=== PATIENT | female | born 1990 ===

== ENCOUNTER 2017-08-03 21:02 | Emergency (ER) | payer MEDICAID, OTHER ==
[2017-08-03 21:13] VITALS: BP 126/78; PULSE 96; TEMP 98.5; O2SAT 100
--- NOTE | 2017-08-03 21:34 | C.PDOC ---
Time Seen by Provider: 08/03/17 21:14 Chief Complaint (Nursing): Dental Pain Past Medical History Vital Signs: Last Vital Signs Temp 98.5 F 08/03/17 21:08 Pulse 96 H 08/03/17 21:08 Resp 18 08/03/17 21:08 BP 126/78 08/03/17 21:08 Pulse Ox 100 08/03/17 21:08 - Social History Hx Tobacco Use: No Hx Alcohol Use: No Hx Substance Use: No - Immunization History Hx Tetanus Toxoid Vaccination: No Hx Influenza Vaccination: No Hx Pneumococcal Vaccination: No ED Course And Treatment O2 Sat by Pulse Oximetry: 100 Disposition - Disposition Referrals: Chela Nowak MD [Primary Care Provider] -
--- NOTE | 2017-08-03 21:36 | C.PDOC ---
History Of Present Illness <ChiloVinnyMaude L - Last Filed: 08/03/17 22:05> <Pritesh Ruiz - Last Filed: 08/04/17 00:21> 27 y/o female presents to ED with complaints of tooth pain, ear pain and throat pain for 2 days. Patient states she had molar extraction x1 month ago and has worsening pain for 2 days. Patient denies fever, discharge, active bleeding or any other complaints at this time. (Maude Woo) She and want "something stronger for dental pain" but have not used motrin in the past few days, "because I don't think it will work" (Pritesh Ruiz) History Per: Patient History/Exam Limitations: no limitations Onset/Duration Of Symptoms: Days Current Symptoms Are (Timing): Still Present <ChiloVinnyMaude L - Last Filed: 08/03/17 22:05> <Pritesh Ruiz - Last Filed: 08/04/17 00:21> Time Seen by Provider: 08/03/17 21:14 Chief Complaint (Nursing): Dental Pain Past Medical History Reviewed: Historical Data, Nursing Documentation, Vital Signs - Medical History PMH: No Chronic Diseases Surgical History: No Surg Hx Family History: States: No Known Family Hx - Social History Hx Tobacco Use: No Hx Alcohol Use: No Hx Substance Use: No - Immunization History Hx Tetanus Toxoid Vaccination: No Hx Influenza Vaccination: No Hx Pneumococcal Vaccination: No <WooMaude Jose Juan - Last Filed: 08/03/17 22:05> Vital Signs: Last Vital Signs Temp 98.5 F 08/03/17 21:08 Pulse 96 H 08/03/17 21:08 Resp 20 08/03/17 22:35 BP 126/78 08/03/17 21:08 Pulse Ox 100 08/03/17 22:08 Review Of Systems Constitutional: Negative for: Fever, Chills ENT: Positive for: Mouth Pain (Dental). Negative for: Mouth Swelling Gastrointestinal: Negative for: Nausea, Vomiting Skin: Negative for: Rash, Lesions <WooVinnyMaude L - Last Filed: 08/03/17 22:05> Physical Exam - Physical Exam Appears: Non-toxic, No Acute Distress Skin: Normal Color, Warm, Dry, No Rash Head: Atraumatic, Normacephalic Eye(s): bilateral: Normal Inspection Oral Mucosa: Moist Tongue: Normal Appearing Lips: Normal Appearing Teeth: Normal Dentition, No Caries, No Tender To Palpation, No Loose, No Avulsed Gingiva: Normal Appearing, No Erythema, No Ulceration, No Swelling, No Abscess Throat: Normal, No Erythema, No Exudate Neck: Supple Chest: Symmetrical Extremity: Bilateral: Atraumatic, Normal Color And Temperature, Normal ROM Neurological/Psych: Oriented x3, Normal Speech Gait: Steady <Maude Woo - Last Filed: 08/03/17 22:05> ED Course And Treatment O2 Sat by Pulse Oximetry: 100 (RA) Pulse Ox Interpretation: Normal <Maude Woo - Last Filed: 08/03/17 22:05> Progress Note: visited and spoke with pt. she seemed irritated that her ears were not checked. this DM examined her ears/ear canals and note chronic excoriations c/w agressive chronic q-tipping. Explained to pt with good understanding. <Pritesh Ruiz - Last Filed: 08/04/17 00:21> Medical Decision Making <Maude Woo - Last Filed: 08/03/17 22:05> <Pritesh Ruiz - Last Filed: 08/04/17 00:21> Medical Decision Making: [facility] reviewed with no findings Patient treated with Motrin. Patient instructed to follow up with dentist. ( Maude Woo) extensive explanations and education into dental pain and follow-up and [facility] and local dental resources list given and explained. (Pritesh Ruiz) Disposition Counseled Patient/Family Regarding: Need For Followup, Rx Given - Disposition Disposition Time: 22:00 - POA Present On Arrival: None <Maude Woo - Last Filed: 08/03/17 22:05> <Pritesh Ruiz - Last Filed: 08/04/17 00:21> - Disposition Referrals: Chela Nowak MD [Primary Care Provider] - [place] [facility] [Outside] Disposition: HOME/ ROUTINE Condition: GOOD Additional Instructions: Please follow up with your dentist and oral surgeon Take motrin for pain Prescriptions: Ibuprofen [Motrin Tab] 800 mg PO Q6 #20 tab Instructions: Toothache (ED) Forms: [employer] (Luxembourgish), [facility] Print Language: BULGARIAN - Clinical Impression Clinical Impression: Toothache - PA / SUEDE BRUSHER / Resident Statement MD/DO has reviewed & agrees with the documentation as recorded. - Scribe Statement The provider has reviewed the documentation as recorded by the Scribe <Maude Woo - Last Filed: 08/03/17 22:05> <Pritesh Ruiz - Last Filed: 08/04/17 00:21> - Scribe Statement Jessi Jones All medical record entries made by the Scribe were at my direction and personally dictated by me. I have reviewed the chart and agree that the record accurately reflects my personal performance of the history, physical exam, medical decision making, and the department course for this patient. I have also personally directed, reviewed, and agree with the discharge instructions and disposition. (Maude Woo)
[2017-08-03 22:35] VITALS: RESP 20
== END 2017-08-03 22:00 | disposition home or self-care (01) ==
LOC: C.ER 21:02 → SUPCPDRO 21:02 → C.ER 22:00
DX: K08.89 Other specified disorders of teeth and supporting structures (principal)

== ENCOUNTER 2017-11-23 21:13 | Emergency (ER) | payer MEDICAID ==
[2017-11-23 21:49] VITALS: BP 100/64; PULSE 62; TEMP 98.1; O2SAT 100
--- NOTE | 2017-11-23 23:39 | C.PDOC ---
History Of Present Illness 27 year old female presents to the ED c/o right index pain and discoloration of the tip of his fingernail. Patient is unsure of how the injury occurred. Patient denies injury, fall, trauma, weakness, numbness. Time Seen by Provider: 11/23/17 22:13 Chief Complaint (Nursing): Finger,Hand,&Wrist History Per: Patient History/Exam Limitations: no limitations Onset/Duration Of Symptoms: Days Current Symptoms Are (Timing): Still Present Quality: "Pain" Recent travel outside of the [place]: No Additional History Per: Patient Past Medical History Reviewed: Historical Data, Nursing Documentation, Vital Signs Vital Signs: Last Vital Signs Temp 98.1 F 11/23/17 21:46 Pulse 62 11/23/17 21:46 Resp 20 11/23/17 23:55 BP 100/64 11/23/17 21:46 Pulse Ox 100 11/24/17 01:54 - Medical History PMH: No Chronic Diseases Surgical History: No Surg Hx Family History: States: Unknown Family Hx - Social History Hx Tobacco Use: No Hx Alcohol Use: No Hx Substance Use: No - Immunization History Hx Tetanus Toxoid Vaccination: No Hx Influenza Vaccination: No Hx Pneumococcal Vaccination: No Review Of Systems Musculoskeletal: Positive for: Hand Pain Neurological: Negative for: Weakness, Numbness Physical Exam - Physical Exam Appears: Non-toxic, No Acute Distress Skin: Normal Color, Warm, Dry Head: Atraumatic, Normacephalic Eye(s): bilateral: Normal Inspection, PERRL Nose: No Discharge Oral Mucosa: Moist Neck: Normal ROM, Supple Extremity: Normal ROM, No Tenderness, Capillary Refill (< 2 seconds), No Deformity (no foot swelling), No Swelling, Other (punctate discoloration vs splintert to the distal tip of the right 2nd fingernail ) Extremity: Bilateral: Atraumatic Pulses: Left Radial: Normal, Right Radial: Normal Neurological/Psych: Oriented x3 Gait: Steady ED Course And Treatment O2 Sat by Pulse Oximetry: 100 (On RA) Pulse Ox Interpretation: Normal Progress Note: Used an 18 gauge needle to remove some small splinter from the digit, no active bleeding observed. Pt tolerated procedure well. Patient is resting comfortably, and is in no acute distress. Patient was instructed to follow up with PMD in 1-2 days for further evaluation. 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 - Scribe Statement The provider has reviewed the documentation as recorded by the Scribe Andrzej Arthur All medical record entries made by the Scribe were at my direction and personally dictated by me. I have reviewed the chart and agree that the record accurately reflects my personal performance of the history, physical exam, medical decision making, and the department course for this patient. I have also personally directed, reviewed, and agree with the discharge instructions and disposition.
[2017-11-23] MEDS ORDERED: Bacitracin 500 Units/gm Oint Foilpak UD ONE (23:42)
[2017-11-23 23:56] VITALS: RESP 20
== END 2017-11-23 23:55 | disposition home or self-care (01) ==
LOC: C.ER 21:13
DX: S60.450A Superficial foreign body of right index finger, initial encounter (principal); X58.XXXA Exposure to other specified factors, initial encounter